=== PATIENT | female | born 1995 | race African-American/Black ===

== ENCOUNTER 2017-03-10 15:45 | Emergency (ER) | payer BC, OTHER ==
[2017-03-10 16:22] LABS: #Basophils 0.1 thou/uL (0.0-0.2); #Eosinphils 0.3 thou/uL (0.0-0.7); #Lymphocytes 3.6 thou/uL (1.20-3.40); #Monocytes 0.4 thou/uL (0.11-0.59); %Basophils 1.1 % (0.0-1.0); %Eosinophils 4.4 % (0.0-10.0); %Lymphocytes 48.8 % (28.0-48.0); %Monocytes 5.9 % (0.0-4.0); Hematocrit 42.8 % (36.0-47.0); Red Blood Cell (RBC) Count 4.51 mill/uL (4.00-5.20); White Blood Cell (WBC) Count 7.4 thou/uL (4.8-10.8)
[2017-03-10] MEDS ORDERED: Ondansetron HCl/PF 4 MG/2 ML Vial ONE ×2 (16:38→17:36)
[2017-03-10] MEDS ORDERED: Iopamidol 370 76% 100 ML VIAL ONE (16:40)
[2017-03-10 16:42] LABS: ALT (SGPT) 14 U/L (8-55); AST (SGOT) 20 U/L (5-34); Alkaline Phosphatase 75 U/L (40-150); Anion Gap 12 mmol/L (10-20); BUN (Urea Nitrogen) 11 mg/dL (7.0-18.7); Bilirubin, Total 0.5 mg/dL (0.2-1.2); CK (CPK) 188 U/L (29-168); Calc. Creatinine Clearance 0 mL/min (70-130); Calcium 9.9 mg/dL (7.8-10.44); Carbon Dioxide 24 mmol/L (22-29); Chloride 105 mmol/L (98-107); Estimated GFR-MDRD Greater than 90; Globulin 3.7 g/dL (2.4-3.5); Lipase 91 U/L (8-78); Protein, Total 8.3 g/dL (6.0-8.3)
[2017-03-10] MEDS ORDERED: Ketorolac Tromethamine 30 MG/ML VIAL ONE (17:36)
[2017-03-10 17:52] LABS: Bilirubin Negative (Negative); Blood, Urine Negative (Negative); Glucose, Urine (Dipstick) Negative (Negative); Ketone, Urine Negative (Negative); Nitrite Negative (Negative); Protein, Urine (Dipstick) Negative (Neg-Trace); Urobilinogen 0.2 mg/dL (0.2-1.0)
--- NOTE | 2017-03-10 21:30 | CT ---
EXAM: ABDOMEN CT WITH CONTRAST PELVIC CT WITH CONTRAST 03/10/17 HISTORY: Nausea and vomiting x5 days. COMPARISON: None. TECHNIQUE: An abdomen and pelvic CT are performed with IV and oral contrast. Coronal reformatted images are sub mitted for interpretation. FINDINGS: ABDOMEN CT: Lung bases are clear. Heart size is normal. No significant pericardial fluid. Descending thoracic ao rta and abdominal aorta have a normal caliber. No periaortic fat stranding. Symmetric attenuation of the psoas muscles. Intra and extrahepatic portal vein is patent. Gallbladder is unremarkable. Liver, spleen, pancreas, and adrenal glands have appropriate enhancement. Decreased intraabdominal fat limits evaluation for inflammatory change. No mesenteric mass, lymphade nopathy, free air or free fluid. No gastrohepatic, retrocrural or periportal lymphadenopathy. Gastric mucosal, duodenum and multiple normal caliber small bowel loops are noted. No evidence of sm all bowel obstruction. 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 There is scattered material in a nondistended, nondilated colon. Occasional diverticulosis. No evidence of diverticulitis. Normal caliber air filled appendix is identified. No inflammation of the right lower quadrant. There is symmetric enhancement of the kidneys. Bilaterally, no obstructive uropathy. A 1.5 cm hypode nsity emanating from the lower pole of the right kidney likely representing a slightly complex cyst. PELVIC CT: The uterus and adnexa are unremarkable. No mass, lymphadenopathy, free air or free fluid in the pelv is. The urinary bladder is unremarkable. No osteoblastic or osteolytic lesions. IMPRESSION: 1. No acute abnormality in the abdomen or pelvis. Normal caliber appendix. 2. Probable slightly complex cyst in the lower pole of the right kidney. Nonemergent followup u ltrasound in six months is recommended. POS: [facility]
== END 2017-03-10 19:45 | disposition home or self-care (01) ==
LOC: ERS 15:45
DX: N28.1 Cyst of kidney, acquired (principal)
CPT/HCPCS: 36415; 74177; 80053; 81003; 81025; 82550; 83605; 83690; 84703; 85025; 87086; 96361; 96374; 96375; 96376; J1885; J2270; J2405

== ENCOUNTER 2017-11-07 15:35 | Outpatient (CLI) | payer OTHER | END 2017-11-07 15:36 | disposition home or self-care (01) | LOC: BICULT 15:35 | PROVIDERS: ATTEND Family Medicine | DX: N28.1 Cyst of kidney, acquired (principal); R93.421 Abnormal radiologic findings on diagnostic imaging of right kidney | CPT/HCPCS: 76770 ==

== ENCOUNTER 2019-04-09 10:35 | Emergency (ER) | payer OTHER, SELFPAY ==
--- NOTE | 2019-04-09 10:51 | RAD ---
Exam: Chest 2 views HISTORY:Pain Comparison: None FINDINGS: Lungs: No masses or consolidation. Cardiac silhouette: Normal size Pulmonary vessels: Normal Pleural Spaces: Clear Pneumothorax: None Osseous abnormalities: None of acuity. IMPRESSION: No focal consolidation.
[2019-04-09 11:25] LABS: Hemoglobin 12.4 g/dL (12.0-16.0); Mean Corpuscular HGB CONC 34.1 g/dL (32.0-36.0); Mean Corpuscular Hemoglobin 31.6 pg (27.0-31.0); Mean Corpuscular Volume 92.7 fL (78.0-98.0); Mean Platelet Volume 6.1 fL (7.4-10.4); Platelet Count 317 thou/uL (130-400); RBC Distribution Width 10.5 % (11.5-14.5); Red Blood Cell (RBC) Count 3.93 mill/uL (4.20-5.40); White Blood Cell (WBC) Count 5.9 thou/uL (4.8-10.8)
[2019-04-09 11:47] LABS: ALT (SGPT) 14 U/L (8-55); AST (SGOT) 14 U/L (5-34); Albumin 4.5 g/dL (3.5-5.0); Alkaline Phosphatase 76 U/L (40-110); Anion Gap 10 mmol/L (10-20); BUN (Urea Nitrogen) 8 mg/dL (7.0-18.7); Bilirubin, Total 0.7 mg/dL (0.2-1.2); Calc. Creatinine Clearance 0 mL/min (70-130); Calcium 9.5 mg/dL (7.8-10.44); Carbon Dioxide 25 mmol/L (22-29); Chloride 108 mmol/L (98-107); Estimated GFR-MDRD Greater than 90; Globulin 2.7 g/dL (2.4-3.5); Glucose 93 mg/dL (70-105); Protein, Total 7.2 g/dL (6.0-8.3); Sodium 139 mmol/L (136-145)
[2019-04-09 11:57] LABS: Band 1 % (5-11); Eosinophils 2 % (0-10); Lymphocytes 53 % (21-51); MDiff Complete? YES; Monocytes 8 % (0-10); Neutrophil 36 % (42-75); Platelet Morphology Comment Appears Adequate; RBC Morphology Normal
[2019-04-09] MEDS ORDERED: Mag-Al 1200 mg/1200 mg/30 ML UDCUP ONE (12:27)
[2019-04-09] MEDS ORDERED: Ketorolac Tromethamine 60 MG/2 ML VIAL ONE (12:27)
[2019-04-09] MEDS ORDERED: Lidocaine Viscous Sol 2% 15 ml UD Cup ONE (12:27)
== END 2019-04-09 13:05 | disposition home or self-care (01) ==
LOC: ERS 10:35
DX: K21.0 Gastro-esophageal reflux disease with esophagitis (principal); R07.89 Other chest pain; Z79.899 Other long term (current) drug therapy
CPT/HCPCS: 36415; 71046; 80053; 84484; 85025; 93005; 96372; J1885